=== PATIENT | female | born 1970 | race Caucasian/White ===

== ENCOUNTER 2017-02-04 21:54 | Emergency (ER) | payer OTHER ==
[2017-02-04 22:02] VITALS: BP 102/73; TEMP 98.2
[2017-02-04] MEDS ORDERED: IPRATROPIUM/ALBUTEROL 3 ML DEYVIAL IH ONE (22:04)
[2017-02-04 22:10] VITALS: PULSE 82; RESP 18; O2SAT 98
--- NOTE | 2017-02-04 22:15 | EDPHY ---
H & P Stated Complaint: asthma Time Seen by Provider: 02/04/17 22:09 HPI/ROS: HPI The patient presents with shortness of breath, wheezing and cough which have been present for the last 1 week. Last night she had a coughing episode lasting for several hours, and her symptoms seemed to get worse at night. She has been using her albuterol nebulizer at home without much relief. She has run out of her Symbicort. She has not had a fever or chills. She has not had rhinorrhea or sore throat. She has no chest pain. She has a history of asthma.. REVIEW OF SYSTEMS Constitutional: No fever, no chills. Eyes: No discharge. ENT: No sore throat. Cardiovascular: No chest pain, no palpitations. Respiratory: See HPI Gastrointestinal: No abdominal pain, no vomiting. Genitourinary: No hematuria. Musculoskeletal: No back pain. Skin: No rashes. Neurological: No headache. PMHx: Asthma Soc Hx: Nonsmoker PHYSICAL General Appearance: Alert, no distress Eyes: Pupils equal and round no pallor or injection ENT, Mouth: Mucous membranes moist Respiratory: There are no retractions, she is speaking full sentences, there are mild expiratory wheezes and coarse breath sounds at all lung michel Cardiovascular: Regular rate and rhythm Gastrointestinal: Abdomen is soft and non-tender, no masses, bowel sounds normal Neurological: A&O, moves all extremities Skin: Warm and dry, no rashes Musculoskeletal: Neck is supple non tender Extremities: symmetrical, full range of motion Psychiatric: Patient is oriented X 3, there is no agitation Source: Patient Exam Limitations: No limitations - Personal History LMP (Females 10-55): 15-21 Days Ago Current Tetanus/Diphtheria Vaccine: Yes Current Tetanus Diphtheria and Acellular Pertussis (TDAP): Yes - Medical/Surgical History Hx Asthma: Yes Hx Chronic Respiratory Disease: No Hx Diabetes: No Hx Cardiac Disease: No Hx Renal Disease: No Hx Cirrhosis: No Hx Alcoholism: No Hx HIV/AIDS: No Hx Splenectomy or Spleen Trauma: No Other PMH: asthma, - Social History Smoking Status: Never smoked Constitutional: Initial Vital Signs Temperature (C) 36.8 C 02/04/17 22:00 Heart Rate 81 02/04/17 22:00 Respiratory Rate 20 02/04/17 22:00 Blood Pressure 102/73 02/04/17 22:00 O2 Sat (%) 93 02/04/17 22:00 O2 Delivery Mode Room Air Allergies/Adverse Reactions: No Known Allergies Allergy (Unverified 02/04/17 22:00) Home Medications: Medication Instructions Recorded NO HOME MEDS 01/09/10 Albuterol 02/04/17 Budesonide/Formoterol 160/4.5 1 puffs IH BID #0 mdi 02/04/17 [Symbicort 160-4.5 Mcg Inh (*)] Symbicort 160-4.5 Mcg Inh (*) 02/04/17 predniSONE [Prednisone] 40 mg PO DAILY #16 tablet 02/04/17 Medical Decision Making - Diagnostics Imaging Results: Imaging Impressions Chest X-Ray 02/04/17 22:13 Impression: Mild airways disease. No pneumonia or acute process. Imaging: I viewed and interpreted images myself Differential Diagnosis: This is a 46-year-old female with asthma who presents with 1 week of shortness of breath, cough, wheezing, not responding to albuterol at home. On exam, she is well-appearing with normal oxygenation, she is in no respiratory distress. Differential diagnosis includes asthma exacerbation, viral URI, pneumonia. In the emergency room, patient felt better after receiving a DuoNeb. Chest x- ray is unremarkable for any pneumonia. I plan to discharge her with a course of prednisone and the Symbicort refill. - Data Points Medications Given: Discontinued Medications Albuterol/Ipratropium (Duoneb) 3 ml IH EDNOW ONE Stop: 02/04/17 22:05 Last Admin: 02/04/17 22:12 Dose: 3 ml Departure - Departure Disposition: Home, Routine, Self-Care Clinical Impression: Exacerbation of asthma Condition: Good Instructions: Bronchospasm (ED) Referrals: Hawk Abreu MD [Primary Care Provider] - As per Instructions Prescriptions: Budesonide/Formoterol 160/4.5 [Symbicort 160-4.5 Mcg Inh (*)] 1 puffs IH BID #0 mdi predniSONE [Prednisone] 40 mg PO DAILY #16 tablet
== END 2017-02-04 22:53 | disposition home or self-care (01) ==
DX: J45.901 Unspecified asthma with (acute) exacerbation (principal)

== ENCOUNTER 2018-10-04 21:47 | Emergency (ER) | payer BC, OTHER ==
[2018-10-04] MEDS ORDERED: predniSONE 20 MG TAB PO ONE (22:17)
[2018-10-04] MEDS ORDERED: IPRATROPIUM/ALBUTEROL 3 ML DEYVIAL IH ONE (22:17)
--- NOTE | 2018-10-04 22:21 | EDPHY ---
H & P Stated Complaint: SOB, cough x 1 week, hx astham Time Seen by Provider: 10/04/18 22:08 HPI/ROS: Chief Complaint: Cough, asthma HPI: A 48-year-old woman history of asthma. Patient's patient having worsening asthma symptoms last week. She has been having worsening dry cough and wheeze. She usually uses Symbicort 1 puff twice a day. For the last week she has been using 2 puffs twice a day. Today got significantly worse. She had 4 puffs this afternoon with no significant relief. Continues have a dry cough with some wheezing. 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 This was after seeing her asthma doc. She has shown me the prescriptions which is a Ventolin inhaler. I pointed out that this is not Symbicort. She states that there must have been a mistake with her prescription. She therefore has been off of her inhaled steroid for the last week. No fevers or chills. Cough is dry. ROS: 10 systems were reviewed and were negative except those elements noted in the HPI. PMH: Asthma Social History: No smoking, no alcohol, no recreational drug use Family History: non-contributory Physical Exam: Gen: Awake, Alert, No Distress HEENT: Nose: no rhinorrhea Eyes: PERRLA, EOMI Mouth: Moist mucosa Neck: Supple, no JVD Chest: nontender, diffuse expiratory wheezing, no focal rales or rhonchi Heart: S1, S2 normal, no murmur Abd: Soft, non-tender, no guarding Back: no CVA tenderness, no midline tenderness Ext: no edema, non-tender Skin: no rash Neuro: CN II-XII intact, Sensation grossly intact, Strength 5/5 in bilateral upper and lower extremities - Personal History LMP (Females 10-55): 1-7 Days Ago Current Tetanus/Diphtheria Vaccine: Yes Tetanus Vaccine Date: < 10 years - Medical/Surgical History Hx Asthma: Yes Hx Chronic Respiratory Disease: No Hx Diabetes: No Hx Cardiac Disease: No Hx Renal Disease: No Hx Cirrhosis: No Hx Alcoholism: No Hx HIV/AIDS: No Hx Splenectomy or Spleen Trauma: No Other PMH: asthma, - Social History Smoking Status: Never smoked Constitutional: Initial Vital Signs Heart Rate 76 10/04/18 21:51 Respiratory Rate 18 10/04/18 21:51 Blood Pressure 123/72 H 02/06/19 21:51 O2 Sat (%) 96 10/04/18 21:51 O2 Delivery Mode Room Air Allergies/Adverse Reactions: No Known Allergies Allergy (Unverified 02/04/17 22:00) Home Medications: Medication Instructions Recorded Albuterol 02/04/17 Symbicort 160-4.5 Mcg Inh (*) 02/04/17 Budesonide/Formoterol 160/4.5 1 puffs IH BID #1 mdi 10/04/18 [Symbicort 160-4.5 Mcg Inh (*)] Medical Decision Making ED Course/Re-evaluation: Patient is improved. Lungs are clear. She states she feels back to normal. I have written her prescription for her Symbicort. She will follow up with doctor for any concerns. - Data Points Medications Given: Discontinued Medications Albuterol/Ipratropium (Duoneb) 3 ml IH EDNOW ONE Stop: 10/04/18 22:18 Last Admin: 10/04/18 22:22 Dose: 3 ml Prednisone (Prednisone) 60 mg PO EDNOW ONE Stop: 10/04/18 22:18 Last Admin: 10/04/18 22:21 Dose: 60 mg Departure - Departure Disposition: Home, Routine, Self-Care Clinical Impression: Exacerbation of asthma Condition: Good Instructions: Asthma (ED) Additional Instructions: Resume your Symbicort as prescribed. Always use a spacer with your inhailers. Follow up with primary care physician in 3-4 days for any concerns. Return to the emergency department for increasing cough, shortness of breath, fevers, chest pain, or any other concerns. Referrals: Hawk Abreu MD [Primary Care Provider] - As per Instructions Prescriptions: Budesonide/Formoterol 160/4.5 [Symbicort 160-4.5 Mcg Inh (*)] 1 puffs IH BID #1 mdi
[2018-10-04 23:10] VITALS: BP 118/70
== END 2018-10-04 23:16 | disposition home or self-care (01) ==
DX: J45.901 Unspecified asthma with (acute) exacerbation (principal)
CPT/HCPCS: J7512